=== PATIENT | female | born 2000 | race Caucasian/White ===

== ENCOUNTER 2021-04-07 15:07 | Emergency (ER) | payer OTHER ==
[~2021-04-07] VITALS: Ht 175.3 cm; Wt 49.9 kg
[2021-04-07] MEDS ORDERED: KETAMINE HCL 10 ML ONE (22:44)
[2021-04-07] MEDS ORDERED: KETAMINE 50mg/ML 10ml Vial (500mg/10ml) IV ONE (22:45)
[2021-04-08] VITALS: BP 131/78
== END 2021-04-08 00:34 | disposition short-term general hospital (02) ==
LOC: EDBD 15:07 → ER 15:07
DX: S27.0XXA Traumatic pneumothorax, initial encounter (principal); M25.512 Pain in left shoulder; M79.642 Pain in left hand; R07.89 Other chest pain; V49.49XA Driver injured in collision with other motor vehicles in traffic accident, initial encounter; Y93.89 Activity, other specified; Y92.410 Unspecified street and highway as the place of occurrence of the external cause; Y99.8 Other external cause status
CPT/HCPCS: 32551; 70450; 71045; 72125; 73030; 73130; 93005; 99291; J7030